=== PATIENT | female | born 1995 | race Caucasian/White ===

== ENCOUNTER → 2017-09-13 | Outpatient (CLI) | payer BC ==
[2017-09-13 13:16] LABS: MEAN CORPUSCULAR HEMOGLOBIN 29 PG (25-34); MEAN CORPUSCULAR HGB CONC 32 G/DL (32-36); MEAN CORPUSCULAR VOLUME 90 FL (80-99); PLATELET COUNT 52 10^3/uL (130-400); RED BLOOD COUNT 4.53 10^6/uL (4.35-5.85); RED CELL DISTRIBUTION WIDTH 13.2 % (10.0-14.5); WHITE BLOOD COUNT 6.2 10^3/uL (4.3-11.0)
[2017-09-13 13:35] LABS: ALANINE AMINOTRANSFERASE 38 U/L (0-55); ALBUMIN 4.2 GM/DL (3.2-4.5); ANION GAP 9 MMOL/L (5-14); ASPARTATE AMINO TRANSFERASE 24 U/L (5-34); BILIRUBIN,TOTAL 0.4 MG/DL (0.1-1.0); BLOOD UREA NITROGEN 10 MG/DL (7-18); BUN/CREATININE RATIO 12; CALCIUM 9.4 MG/DL (8.5-10.1); CARBON DIOXIDE 25 MMOL/L (21-32); CHLORIDE 107 MMOL/L (98-107); CREATININE SERUM 0.85 MG/DL (0.60-1.30); GFR ESTIMATED > 60; GLUCOSE 92 MG/DL (70-105); POTASSIUM 3.8 MMOL/L (3.6-5.0); SODIUM 141 MMOL/L (135-145); TOTAL PROTEIN 7.2 GM/DL (6.4-8.2)
== END ==
LOC: LAB 12:56
PROVIDERS: ATTEND Family Medicine
DX: D69.3 Immune thrombocytopenic purpura (principal)
CPT/HCPCS: 36415; 80053; 85027

== ENCOUNTER 2017-10-16 02:07 | Emergency (ER) | payer BC ==
[~2017-10-16] VITALS: Ht 157.5 cm; Wt 79.4 kg
--- NOTE | 2017-10-16 02:54 | ED Abdominal Pain ---
General Chief Complaint: Abdominal/GI Problems Stated Complaint: AB PAIN Nursing Triage Note: INTERMITTANT ABDOMINAL CRAMPING Sepsis Screen: No Definite Risk Source of Information: Patient History of Present Illness Time Seen By Provider: 02:39 Initial Comments PT STATES THAT SHE HAS HAD STOMACH CRAMPS SINCE 0 TONIGHT STATES SHE KEEPS WAKING UP WITH CRAMPING CRAMPING/PAIN MOVES ALL AROUND ABDOMEN--IS NEVER IN THE SAME PLACE PAIN IS WORSE WITH LAYING DOWN NO NAUSEA/VOMITING NO DIARRHEA. HAS CHRONIC CONSTIPATION. LAST BM WAS Tuesday10/14/17 NO FEVER HAS HAD MILD URINARY FREQUENCY, OTHERWISE NO URINARY SYMPTOMS. LMP 2 WEEKS AGO. NORMAL. ON OCP'S ATE AT [place] AT 1900 --DID NOT EAT WITH ANYONE PT ALSO HAS BEEN DOING SHADOWING AT A HIGH SCHOOL AND MULTIPLE STUDENTS AND STAFF HAVE BEEN ILL WITH GI ILLNESS, INCLUDING THE TEACHER SHE HAS BEEN FOLLOWING--THAT TEACHER WAS OUT MOST OF THIS WEEK WITH GI ILLNESS. [employer] STUDENT Allergies and Home Medications Allergies Coded Allergies: No Known Drug Allergies (Unverified , 10/16/17) Review of Systems Constitutional: no symptoms reported Respiratory: No Symptoms Reported Cardiovascular: No Symptoms Reported Gastrointestinal: See HPI, Abdominal Pain, Constipated, Denies Diarrhea, Denies Nausea, Denies Vomiting Genitourinary: No Symptoms Reported Musculoskeletal: no symptoms reported Skin: no symptoms reported Psychiatric/Neurological: No Symptoms Reported Endocrine: No Symptoms Reported Hematologic/Lymphatic: No Symptoms Reported Past Xaodgkv-Slztmi-Ueeevq Hx Patient Social History Alcohol Use: Denies Use Recreational Drug Use: No Smoking Status: Never a Smoker 2nd Hand Smoke Exposure: No Recent Foreign Travel: No Contact w/Someone Who Travel: No Recent Infectious Disease Expo: No Recent Hopitalizations: No Immunizations Up To Date Tetanus Booster (TDap): Unknown PED Vaccines UTD: Yes Seasonal Allergies Seasonal Allergies: No Surgeries History of Surgeries: Yes (BONE MARROW BX) Respiratory History of Respiratory Disorde: No Cardiovascular History of Cardiac Disorders: No Neurological History of Neurological Disord: No Reproductive System : No Female Reproductive Disorders: Denies Genitourinary History of Genitourinary Disor: No Gastrointestinal History of Gastrointestinal Di: No Musculoskeletal History of Musculoskeletal Dis: No Endocrine History of Endocrine Disorders: No HEENT History of HEENT Disorders: No Cancer History of Cancer: No Psychosocial History of Psychiatric Problem: No Integumentary History of Skin or Integumenta: No Blood Transfusions History of Blood Disorders: Yes (ITP DX AROUND AGE 12, 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 NO TREATMENT) Physical Exam Vital Signs VS - Last 72 Hours, by Label 10/16/17 02:30 Temp 98.7 Pulse 83 Resp 16 B/P (MAP) 115/63 Pulse Ox 99 O2 Delivery Room Air Capillary Refill : Less Than 3 Seconds General Appearance: WD/WN, no apparent distress, other (PT SITTING UPRIGHT, TEXTING. SMILING. DOES NOT APPEAR TO BE IN ANY DISCOMFORT. PT WALKS UPRIGHT AND MOVES QUICKLY WITHOUT DIFFICULTY) HEENT: PERRL/EOMI Neck: normal inspection Respiratory: normal breath sounds, no respiratory distress, no accessory muscle use Cardiovascular: regular rate, rhythm, no murmur Gastrointestinal: normal bowel sounds, non tender, soft, no organomegaly, no pulsatile mass Extremities: normal inspection Back: normal inspection, no CVA tenderness Neurologic/Psychiatric: contract consultant II-XII nml as tested, no motor/sensory deficits, alert, normal mood/affect, oriented x 3 Skin: normal color, warm/dry, No rash Progress/Results/Core Measures Results/Orders Lab Results Laboratory Tests Test 10/16/17 02:50 Range/Units Urine Color YELLOW Urine Clarity CLEAR Urine pH 7 5-9 Urine Specific [place] 1.015 L 1.016-1.022 Urine Protein NEGATIVE NEGATIVE Urine Glucose (UA) NEGATIVE NEGATIVE Urine Ketones NEGATIVE NEGATIVE Urine Nitrite NEGATIVE NEGATIVE Urine Bilirubin NEGATIVE NEGATIVE Urine Urobilinogen NORMAL NORMAL MG/DL Urine Leukocyte Esterase 2+ H NEGATIVE Urine RBC (Auto) NEGATIVE NEGATIVE Urine RBC NONE /HPF Urine WBC 0-2 /HPF Urine Squamous Epithelial Cells 2-5 /HPF Urine Crystals NONE /LPF Urine Bacteria NEGATIVE /HPF Urine Casts NONE /LPF Urine Mucus SMALL H /LPF Urine Culture Indicated NO Urine Test NEGATIVE NEGATIVE My Orders Orders - SUSY GILLIAM DO Hcg,Qualitative Urine (10/16/17 02:46) Ua Culture If Indicated (10/16/17 02:46) Abdomen, Flat & Upright/Decub (10/16/17 02:46) Hyoscyamine Sl Tablet (Levsin Sl Tablet) (10/16/17 04:00) Rx-Dicyclomine Capsule (Rx-Bentyl Capsul (10/16/17 03:52) Vital Signs/I&O Vital Sign - Last 12Hours 10/16/17 02:30 Temp 98.7 Pulse 83 Resp 16 B/P (MAP) 115/63 Pulse Ox 99 O2 Delivery Room Air Blood Pressure Mean: 80 Departure Impression Impression: Primary Impression: Abdominal cramping, generalized Additional Impressions: Constipation POSSIBLE GASTROENTERITIS Disposition: 01 HOME, SELF-CARE Condition: Stable Departure-Patient Inst. Referrals: WALTER CORDOVA MD (PCP) Primary Care Physician GIOVANNY WORRELL MD Patient Instructions: Constipation, Adult (DC), Viral Gastroenteritis, Adult ( DC) Add. Discharge Instructions: CLEAR LIQUIDS--WATER, BROTH, JELLO, GATORADE TOMORROW IF YOU ARE BETTER, ADD BRATS DIET TO CLEAR LIQUIDS--BANANAS, RICE, APPLESAUCE, TOAST, SALTINES TAKE MIRALAX DAILY FOR CONSTIPATION FOLLOW UP WITH [facility] IN 1-2 DAYS IF NO BETTER RETURN TO ER IF WORSE All discharge instructions reviewed with patient and/or family. Voiced understanding. Scripts Ondansetron (Zofran Odt) 4 Mg Tab.rapdis 4 MG PO Q4H for Nausea/Vomiting, #10 TAB Prov: SUSY GILLIAM DO 10/16/17 Hyoscyamine Sulfate (Levsin-Sl) 0.125 Mg Tab.subl 1-2 TAB SL Q4H for Abdominal Pain, #15 TAB Prov: SUSY GILLIAM DO 10/16/17 Dicyclomine HCl (Bentyl) 10 Mg Capsule 10 MG PO Q6H Y for ABDOMINAL PAIN, #15 CAP Prov: SUSY GILLIAM DO 10/16/17 SUSY IGLLIAM DO Oct 16, 2017 02:54
[2017-10-16 02:55] LABS: BILIRUBIN,URINE NEGATIVE (NEGATIVE); KETONES,URINE NEGATIVE (NEGATIVE); LEUKOCYTE ESTERASE ,URINE 2+ (NEGATIVE); NITRITE,URINE NEGATIVE (NEGATIVE); PH,URINE 7 (5-9); PROTEIN,URINE NEGATIVE (NEGATIVE); UROBILINOGEN,URINE NORMAL (NORMAL)
[2017-10-16 03:07] LABS: WBC,URINE 0-2 /HPF
[2017-10-16] MEDS ORDERED: RX-DICYCLOMINE 10 MG (BENTYL) CAP PPK#4 PO STA (03:52)
[2017-10-16] MEDS ORDERED: HYOSCYAMINE 0.125 MG (LEVSIN) TAB PO ONE (04:00)
[2017-10-16] MEDS ORDERED: HYOS0.1283 SL (04:04)
[2017-10-16] MEDS ORDERED: DICY10CA59 PO (04:04)
[2017-10-16] MEDS ORDERED: ONDA4TAB8 PO (04:04)
[2017-10-16 04:10] VITALS: BP 112/60
--- NOTE | 2017-10-16 07:29 | Diagnostic Imaging Report ---
INDICATION: Abdominal pain. COMPARISON: None FINDINGS: AP upright and supine views of the abdomen are obtained. There is a large amount of stool in the colon. The bowel gas pattern is otherwise unremarkable. There is no evidence for free intraperitoneal air or portal venous gas. No abnormal calcifications are seen. Osseous structures appear unremarkable. IMPRESSION: There is large amount of stool in the colon. No additional abnormality is demonstrated. Dictated by: Dictated on workstation # [id number]
== END 2017-10-16 04:10 | disposition home or self-care (01) ==
LOC: EDUNIT# 02:07 → ER 02:08
DX: K59.00 Constipation, unspecified (principal)
CPT/HCPCS: 74020; 81000; 84703; 99283

== ENCOUNTER → 2018-01-26 | Outpatient (CLI) | payer BC ==
[~2018-01-26] MED LIST: DICY10CA59 PO; HYOS0.1283 SL; ONDA4TAB8 PO
--- NOTE | 2018-01-26 11:44 | Diagnostic Imaging Report ---
PROCEDURE: US abdomen complete. TECHNIQUE: Multiple real-time grayscale images were obtained over the abdomen in various projections. INDICATION: Left upper quadrant abdominal pain. FINDINGS: Liver parenchyma is homogeneous with normal echotexture. Gallbladder is clear with no stones or wall thickening. Portal vein is patent with hepatopetal flow. Common duct is not dilated. Pancreas appears normal. Spleen is not enlarged. Aorta and IVC are normal. Right kidney measures 9.8 cm in length. Left kidney measures 10.1 cm in length. Both appear normal. There is no ascites. IMPRESSION: Negative abdominal sonogram. Dictated by: Dictated on workstation # [id number]
== END ==
LOC: RAD 08:03
PROVIDERS: ATTEND Internal Medicine
DX: D69.3 Immune thrombocytopenic purpura (principal); R10.12 Left upper quadrant pain
CPT/HCPCS: 76700

== ENCOUNTER 2019-10-14 01:54 | Emergency (ER) | payer BC ==
[~2019-10-14] VITALS: Ht 157 cm; Wt 77.0 kg
[2019-10-14 02:30] LABS: BILIRUBIN,URINE NEGATIVE (NEGATIVE); CLARITY,URINE CLEAR; COLOR,URINE YELLOW; GLUCOSE, URINE (UA) NEGATIVE (NEGATIVE); KETONES,URINE NEGATIVE (NEGATIVE); LEUKOCYTE ESTERASE ,URINE NEGATIVE (NEGATIVE); NITRITE,URINE NEGATIVE (NEGATIVE); PH,URINE 5.5 (5-9); PROTEIN,URINE NEGATIVE (NEGATIVE)
[2019-10-14 02:44] LABS: RBC,URINE >100 /HPF; WBC,URINE 0-2 /HPF
[2019-10-14 02:45] LABS: BACTERIA,URINE TRACE /HPF; SQUAMOUS EPITHELIAL CELL,UR 0-2 /HPF; YEAST,URINE MODERATE /HPF
[2019-10-14] MEDS ORDERED: NS IV 1000 ML 1,000 ML IV ONE (02:54)
[2019-10-14] MEDS ORDERED: KETOROLAC 30 MG/ML VIAL IVP ONE (03:00)
[2019-10-14 03:34] LABS: BASOPHILS % (AUTO) 0 % (0-10); EOSINOPHILS # (AUTO) 0.4 10^3/uL (0.0-0.3); EOSINOPHILS % (AUTO) 5 % (0-10); HEMATOCRIT 39 % (35-52); HEMOGLOBIN 12.5 G/DL (11.5-16.0); LYMPHOCYTES # (AUTO) 2.6 X 10^3 (1.0-4.0); LYMPHOCYTES % (AUTO) 32 % (12-44); MEAN CORPUSCULAR HEMOGLOBIN 29 PG (25-34); MEAN CORPUSCULAR HGB CONC 32 G/DL (32-36); MEAN CORPUSCULAR VOLUME 92 FL (80-99); MONOCYTES # (AUTO) 0.6 X 10^3 (0.0-1.0); MONOCYTES % (AUTO) 7 % (0-12); NEUTROPHILS # (AUTO) 4.5 X 10^3 (1.8-7.8); NEUTROPHILS % (AUTO) 55 % (42-75); PLATELET COUNT 50 10^3/uL (130-400); RED CELL DISTRIBUTION WIDTH 13.6 % (10.0-14.5); WHITE BLOOD COUNT 8.1 10^3/uL (4.3-11.0)
[2019-10-14 03:58] LABS: BUN/CREATININE RATIO 16; CARBON DIOXIDE 21 MMOL/L (21-32); CHLORIDE 107 MMOL/L (98-107); CREATININE SERUM 0.83 MG/DL (0.60-1.30); SODIUM 141 MMOL/L (135-145)
[2019-10-14 03:59] LABS: ALANINE AMINOTRANSFERASE 14 U/L (0-55); ALBUMIN 4.5 GM/DL (3.2-4.5); ALKALINE PHOSPHATASE 78 U/L (40-136); BILIRUBIN,TOTAL 0.3 MG/DL (0.1-1.0); CALCIUM 9.7 MG/DL (8.5-10.1); GFR ESTIMATED > 60; GLUCOSE 89 MG/DL (70-105); TOTAL PROTEIN 6.9 GM/DL (6.4-8.2)
--- NOTE | 2019-10-14 04:23 | ED General ---
General Chief Complaint: - Urinary Stated Complaint: PAIN IN RT SIDE, PAIN WITH URINATION Nursing Triage Note: patient advises she awoke at approximately 0100 with pain to the right flank. She advises pain has improved but still present. She denies pain or burning with urination but noted shortly after urination that she did begin to experience burning. Patient denies previous hx. of kidney stones but states hx. of UTI's. Nursing Sepsis Screen: No Definite Risk Source of Information: Patient Exam Limitations: No Limitations History of Present Illness Date Seen by Provider: Oct 14, 2019 Time Seen by Provider: 02:15 Initial Comments This 24-year-old young lady presents to the emergency room with complaints of right flank pain that started at around 01:00. He came on suddenly and woke her from sleep. She had associated nausea without vomiting. Pain is less intense now and she just feels sore. She denies any fever. She had burning after voiding urine. She has noticed no hematuria. Her primary care provider is Dr. Go. She is on continuous control and does not have menstrual cycles as a result. She denies . Allergies and Home Medications Allergies Coded Allergies: No Known Drug Allergies (Unverified , 10/16/17) Home Medications Dicyclomine HCl 10 Mg Capsule, 10 MG PO Q6H PRN for ABDOMINAL PAIN Prescribed by: SUSY GILLIAM on 10/16/17403 Hyoscyamine Sulfate 0.125 Mg Tab.subl, 1-2 TAB SL Q4H Prescribed by: SUSY GILLIAM on 10/16/17403 Ondansetron 4 Mg Tab.rapdis, 4 MG PO Q4H Prescribed by: SUSY GILLIAM on 10/16/17403 Patient Home Medication List Home Medication List Reviewed: Yes Review of Systems Review of Systems Constitutional: no symptoms reported EENTM: no symptoms reported Respiratory: no symptoms reported Cardiovascular: no symptoms reported Genitourinary: see HPI : No Musculoskeletal: no symptoms reported Skin: no symptoms reported Psychiatric/Neurological: No Symptoms Reported Hematologic/Lymphatic: No Symptoms Reported Past Ixibqaq-Zruzns-Nrlzux Hx Past Med/Social Hx: Reviewed Nursing Past Med/Soc Hx Patient Social History Alcohol Use: Denies Use Recreational Drug Use: No Smoking Status: Never a Smoker 2nd Hand Smoke Exposure: No Recent Foreign Travel: No Contact w/Someone Who Travel: No Recent Infectious Disease Expo: No Recent Hopitalizations: No Immunizations Up To Date Tetanus Booster (TDap): Unknown PED Vaccines UTD: Yes Seasonal Allergies Seasonal Allergies: No Past Medical History Surgeries: Yes (BONE MARROW BX) Respiratory: No Cardiac: No Neurological: No Reproductive Disorders: Yes Female Reproductive Disorders: Endometriosis, Polycystic Ovarian Dis Genitourinary: No Gastrointestinal: No Musculoskeletal: No Endocrine: No HEENT: No Cancer: No Psychosocial: No Integumentary: No Blood Disorders: Yes (ITP DX AROUND AGE 12, 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 NO TREATMENT) Physical Exam Vital Signs Vital Signs - First Documented 10/14/19 02:22 Temp 36.6 Pulse 84 Resp 14 B/P (MAP) 130/70 (90) Pulse Ox 98 O2 Delivery Room Air Capillary Refill : Less Than 3 Seconds Height, Weight, BMI Height: 5'2.00" Weight: 175lbs. oz. 79.110553mq; 31.00 BMI Method:Stated General Appearance: No Apparent Distress, WD/WN HEENT: PERRL/EOMI, Normal ENT Inspection Neck: Normal Inspection Respiratory: Lungs Clear, Normal Breath Sounds, No Accessory Muscle Use Cardiovascular: Regular Rate, Rhythm, No Edema, No Murmur Gastrointestinal: Normal Bowel Sounds, Non Tender, Soft Back: Normal Inspection Extremity: Normal Inspection, No Pedal Edema Neurologic/Psychiatric: Alert, Oriented x3, No Motor/Sensory Deficits, Normal Mood/Affect, clutch operator II-XII Norm as Tested Progress/Results/Core Measures Suspected Sepsis Recent Fever Within 48 Hours: No Infection Criteria Present: Suspected New Infection New/Unexplained Altered Menta: No Sepsis Screen: No Definite Risk SIRS Temperature: Pulse: 84 Respiratory Rate: 14 Laboratory Tests 10/14/19 03:28: White Blood Count 8.1 Blood Pressure 130 /70 Mean: 90 Laboratory Tests 10/14/19 03:28: Creatinine 0.83, Platelet Count 50L, Total Bilirubin 0.3 Results/Orders Lab Results Laboratory Tests Test 10/14/19 02:26 10/14/19 03:28 Range/Units Urine Color YELLOW Urine Clarity CLEAR Urine pH 5.5 5-9 Urine Specific [place] >=1.030 1.016-1.022 Urine Protein NEGATIVE NEGATIVE Urine Glucose (UA) NEGATIVE NEGATIVE Urine Ketones NEGATIVE NEGATIVE Urine Nitrite NEGATIVE NEGATIVE Urine Bilirubin NEGATIVE NEGATIVE Urine Urobilinogen 0.2 < = 1.0 MG/DL Urine Leukocyte Esterase NEGATIVE NEGATIVE Urine RBC (Auto) 3+ H NEGATIVE Urine RBC >100 H /HPF Urine WBC 0-2 /HPF Urine Squamous Epithelial Cells 0-2 /HPF Urine Crystals NONE /LPF Urine Bacteria TRACE /HPF Urine Casts NONE /LPF Urine Mucus SMALL H /LPF Urine Yeast MODERATE H /HPF Urine Culture Indicated YES White Blood Count 8.1 4.3-11.0 10^3/uL Red Blood Count 4.25 L 4.35-5.85 10^6/uL Hemoglobin 12.5 11.5-16.0 G/DL Hematocrit 39 35-52 % Mean Corpuscular Volume 92 80-99 FL Mean Corpuscular Hemoglobin 29 25-34 PG Mean Corpuscular Hemoglobin Concent 32 32-36 G/DL Red Cell Distribution Width 13.6 10.0-14.5 % Platelet Count 50 L 130-400 10^3/uL Mean Platelet Volume 7.4-10.4 FL Neutrophils (%) (Auto) 55 42-75 % Lymphocytes (%) (Auto) 32 12-44 % Monocytes (%) (Auto) 7 0-12 % Eosinophils (%) (Auto) 5 0-10 % Basophils (%) (Auto) 0 0-10 % Neutrophils # (Auto) 4.5 1.8-7.8 X 10^3 Lymphocytes # (Auto) 2.6 1.0-4.0 X 10^3 Monocytes # (Auto) 0.6 0.0-1.0 X 10^3 Eosinophils # (Auto) 0.4 H 0.0-0.3 10^3/uL Basophils # (Auto) 0.0 0.0-0.1 10^3/uL Sodium Level 141 135-145 MMOL/L Potassium Level 4.0 3.6-5.0 MMOL/L Chloride Level 107 98-107 MMOL/L Carbon Dioxide Level 21 21-32 MMOL/L Anion Gap 13 5-14 MMOL/L Blood Urea Nitrogen 13 7-18 MG/DL Creatinine 0.83 0.60-1.30 MG/DL Estimat Glomerular Filtration Rate > 60 BUN/Creatinine Ratio 16 Glucose Level 89 70-105 MG/DL Calcium Level 9.7 8.5-10.1 MG/DL Corrected Calcium 9.3 8.5-10.1 MG/DL Total Bilirubin 0.3 0.1-1.0 MG/DL Aspartate Amino Transf (AST/SGOT) 16 5-34 U/L Alanine Aminotransferase (ALT/SGPT) 14 0-55 U/L Alkaline Phosphatase 78 40-136 U/L Total Protein 6.9 6.4-8.2 GM/DL Albumin 4.5 3.2-4.5 GM/DL My Orders Orders - ANTON RAMOS MD Ua Culture If Indicated (10/14/19 02:15) Urine Bedside (10/14/19 02:15) Urine Culture (10/14/19 02:26) Ed Iv/Invasive Line Start (10/14/19 02:54) Ns Iv 1000 Ml (Sodium Chloride 0.9%) (10/14/19 02:54) Cbc With Automated Diff (10/14/19 02:54) Comprehensive Metabolic Panel (10/14/19 02:54) Ct Abd/Pelvis Wo(Kidney Stone) (10/14/19 02:54) Ketorolac Injection (Toradol Injection) (10/14/19 03:00) Medications Given in ED Current Medications Medications Dose Ordered Sig/Kaci Route Start Time Stop Time Status Last Admin Dose Admin Ketorolac Tromethamine 15 mg ONCE ONCE IVP 10/14/19 03:00 10/14/19 03:01 DC 10/14/19 03:26 15 MG Sodium Chloride 1,000 ml @ 0 mls/hr Q0M ONCE IV 10/14/19 02:54 10/14/19 02:56 DC 10/14/19 03:25 0 MLS/HR Vital Signs/I&O 10/14/19 10/14/19 02:22 06:47 Temp 36.6 Pulse 84 68 Resp 14 14 B/P (MAP) 130/70 (90) 109/63 Pulse Ox 98 98 O2 Delivery Room Air Room Air Capillary Refill : Less Than 3 Seconds Blood Pressure Mean: 90 POS Progress Note : Progress Note There were a significant amount of red blood cells found in her urine on urinalysis. This would suggest possible presence of ureteral stone especially in this clinical context. Risks and benefits of CT were reviewed with patient. Patient elects to proceed with CT scan. CT demonstrated no evidence of ureteral stone. Patient was strongly advised to follow-up with her primary care provider this week to have a repeat urinalysis performed to ensure hematuria clears. Patient's ITP may be a contributing factor to her hematuria. Departure Impression Primary Impression: Right flank pain Additional Impressions: Hematuria Qualified Codes: R31.9 - Hematuria, unspecified Chronic ITP (idiopathic thrombocytopenia) Disposition: 01 HOME, SELF-CARE Condition: Improved Departure-Patient Inst. Decision time for Depature: 04:21 Referrals: NO,LOCAL PHYSICIAN (PCP/Family) Primary Care Physician Patient Instructions: Blood in the Urine (Hematuria) in Adults Add. Discharge Instructions: Drink plenty of clear liquids. You may take Tylenol (acetaminophen) up to 1000 mg every 6 hours as needed for pain. Please follow-up with your primary care provider later this week and have a repeat urinalysis performed to ensure the blood in your urine clears. Return to the emergency room if you have worsening symptoms including escalating pain, persistent nausea or vomiting, fevers, etc. All discharge instructions reviewed with patient and/or family. Voiced understanding. ANTON RAMOS MD Oct 14, 2019 04:23 POS
--- NOTE | 2019-10-14 06:32 | Diagnostic Imaging Report ---
PROCEDURE: CT urinary tract, rule out kidney stone. TECHNIQUE: Multiple contiguous axial images were obtained through the abdomen and pelvis without the use of intravenous contrast. Auto Exposure Controls were utilized during the CT exam to meet ALARA standards for radiation dose reduction. INDICATION: Right-sided abdominal pain. No prior studies are available for comparison. FINDINGS: The lung bases are clear. The liver and spleen are unremarkable. No biliary ductal dilatation is seen. The pancreas and spleen are unremarkable. No adrenal mass is detected. No renal calculi or hydronephrosis is seen. Small and large bowel loops are normal caliber. Appendix is visualized and unremarkable. There is no free fluid or fluid collection identified. Bladder is decompressed. The bony structures are unremarkable. IMPRESSION: No acute feature is identified. Dictated by: Dictated on workstation # [id number]
[2019-10-14 06:47] VITALS: BP 109/63
== END 2019-10-14 06:47 | disposition home or self-care (01) ==
LOC: EDUNIT# 01:54 → ER 01:57
DX: D69.3 Immune thrombocytopenic purpura (principal); R10.9 Unspecified abdominal pain; Z87.442 Personal history of urinary calculi
CPT/HCPCS: 36415; 74176; 80053; 81000; 84703; 85025; 87088